=== PATIENT | female | born 1930 | race Caucasian/White ===

== ENCOUNTER → 2017-10-27 | Outpatient (CLI) | payer OTHER ==
[~2017-10-27] MED LIST: CHOL20005 PO; CRG125 PO; LISI-725 PO; MULTTAB58 PO
--- NOTE | 2017-10-27 16:00 | MAMMOGRAPHY REPORT ---
BILATERAL DIGITAL SCREENING MAMMOGRAM TOMOSYNTHESIS WITH CAD: 10/27/2017 CLINICAL HISTORY: Routine screening examination. TECHNIQUE: Breast tomosynthesis in addition to standard 2D mammography was performed. Current study was also evaluated with a Computer Aided Detection (CAD) system. COMPARISON: Comparison is made to exams dated: 10/26/2016 mammogram, 10/21/2015 mammogram, 10/17/2014 mammogram, 10/16/2013 mammogram, 10/13/2012 mammogram, and 10/12/2011 mammogram - [facility]. BREAST COMPOSITION: The tissue of both breasts is heterogeneously dense, which may obscure small mas ses. FINDINGS: There are multiple stable asymmetries bilaterally. Scattered benign coarse calcifications. No new suspicious mass, architectural distortion or cluster of microcalcifications is seen. IMPRESSION: ACR BI-RADS CATEGORY 1: NEGATIVE There is no mammographic evidence of malignancy. A 1 year screening mammogram is recommended. The pa tient will receive written notification of the results. Approximately 10% of breast cancers are not detected with mammography. A negative mammographic report should not delay biopsy if a clinically suggestive mass is present. María Graves M.D. ay/:10/27/2017 15:34:50 Professional Services Manager: Keyla STEWART(Conrad)(M), [facility] letter sent: Normal 1/2 BI-RADS Code: ACR BI-RADS Category 1: Negative
== END | disposition home or self-care (01) ==
LOC: C.MAMM 10:28
PROVIDERS: ATTEND Internal Medicine
DX: Z12.31 Encounter for screening mammogram for malignant neoplasm of breast (principal)

== ENCOUNTER → 2018-06-07 | Outpatient (CLI) | payer OTHER ==
[~2018-06-07] MED LIST changes: +OPTIRAY 320 IV PRN
[2018-06-07 15:19] LABS: BASO % 0.1 %; BASO ABS # 0.01 K/uL (0-0.2); EOS % 0.2 %; EOS ABS # 0.02 K/uL (0-0.5); HEMATOCRIT 43.5 % (37-47); HEMOGLOBIN 14.8 g/dL (12.0-16.0); IG# 0.01 K/uL (0.00-0.02); LYMPH % 10.3 %; LYMPH ABS # 0.97 K/uL (1.2-3.4); MEAN CELL VOLUME 91.6 fL (80-100); MEAN CORPUSCULAR HEMOGLOBIN 31.2 pg (25-34); MONO ABS # 0.38 K/uL (0.11-0.59); NEUT % 85.3 %; NEUT ABS # 8.05 K/uL (1.4-6.5); PLATELET COUNT 233 K/uL (130-400); RED CELL DISTRIBUTION WIDTH CV 12.9 % (11.5-14.5); RED CELL DISTRIBUTION WIDTH SD 43.2 fL (36.4-46.3); WHITE BLOOD COUNT 9.44 K/uL (4.8-10.8)
[2018-06-07 15:38] LABS: ALBUMIN 3.4 gm/dl (3.4-5.0); ALT/SGPT 20 U/L (12-78); AST/SGOT 19 U/L (15-37); BLOOD UREA NITROGEN 25 mg/dl (7-18); CALCIUM 9.8 mg/dl (8.5-10.1); CARBON DIOXIDE 32 mmol/L (21-32); CREATININE 1.27 mg/dl (0.60-1.20); GLUCOSE 121 mg/dl (70-99); POTASSIUM 3.6 mmol/L (3.5-5.1); SODIUM 138 mmol/L (136-145)
[2018-06-07 15:43] LABS: ALKALINE PHOSPHATASE 75 U/L (45-117); TOTAL PROTEIN 8.5 gm/dl (6.4-8.2)
--- NOTE | 2018-06-07 17:05 | DIAGNOSTIC IMAGING REPORT ---
ABD/PELVIS IV AND ORAL CONT CT DOSE: 250.89 mGy.cm HISTORY: Pain ABD TENDERNESS LLQ,REBOUND,DIVERTICULITIS R10.814 TECHNIQUE: Multiaxial CT images of the abdomen and pelvis were performed following the use of intravenous and oral contrast. A dose lowering technique was utilized adhering to the principles of ALARA. COMPARISON STUDY: None. FINDINGS: Lung bases are generally clear. Multinodular appearing breast tissue. Multiple small hepatic cysts. Bilateral renal peripelvic cyst. No evidence renal hydronephrosis. Chronic colonic diverticulosis. No well-defined acute diverticulitis. Trace free fluid within the pelvic cul-de-sac. Bladder is midline. 1.5 cm left ovarian cyst. IMPRESSION: 1. Chronic colonic diverticulosis. 2. No evidence for acute diverticulitis. 3. 1.5 cm left ovarian cyst 4. Trace free fluid within the pelvic cul-de-sac. 5. Several small hepatic cysts. 5. Multinodular breast parenchymal pattern The above report was generated using voice recognition software. It may contain grammatical, syntax or spelling errors. Electronically signed by: Abdiel Gannon M.D. 06/07/2018 5:03 PM Dictated Date/Time: 06/07/2018 4:57 PM
== END | disposition home or self-care (01) ==
LOC: C.CTS 14:36
PROVIDERS: ATTEND Nurse Practitioner
DX: R10.814 Left lower quadrant abdominal tenderness (principal); K57.30 Diverticulosis of large intestine without perforation or abscess without bleeding; N83.202 Unspecified ovarian cyst, left side; K76.89 Other specified diseases of liver; N64.89 Other specified disorders of breast